=== PATIENT | female | born 1965 ===

== ENCOUNTER 2022-04-03 05:37 | Outpatient (CLI) | payer SELFPAY ==
[~2022-04-03] VITALS: Ht 154.9 cm; Wt 49.0 kg
== END 2022-04-05 11:55 | disposition home or self-care (01) ==
LOC: PREOP 05:37
PROVIDERS: ATTEND Surgery
DX: Z01.818 Encounter for other preprocedural examination (principal); K92.1 Melena

== ENCOUNTER 2022-04-16 08:39 | Day surgery (SDC) | payer OTHER ==
[~2022-04-16] VITALS: Ht 154.9 cm; Wt 49.0 kg
[2022-04-16] MEDS ORDERED: LACTATED RINGERS 1,000 ML IV STA (08:44)
[2022-04-16 09:15] VITALS: BP 124/72
[2022-04-16] MEDS ORDERED: PROPOFOL INJECTION 50 ML IV ONE (11:15)
--- NOTE | 2022-04-16 11:46 | Discharge Inst-Simple/Standard ---
Discharge Inst-Standard Patient Instructions/Follow Up Plan of Care/Instructions/FU: 10 years Sadie unless family hx of colon cancer or personal history of polyps 5 years. Any issues before that be seen at that time. Activity as Tolerated: Yes Discharge Diet: Regular Diet DANIEL OROZCO DO Apr 16, 2022 11:46
[2022-04-16 11:50] VITALS: BP 101/55
[2022-04-16 11:55] VITALS: BP 102/57
[2022-04-16 12:10] VITALS: BP 101/55
--- NOTE | 2022-04-16 14:20 | Anesthesia-General Post-Op ---
MAC Patient Condition Mental Status/LOC: Same as Preop Cardiovascular: Satisfactory Nausea/Vomiting: Absent Respiratory: Satisfactory Pain: Controlled Complications: Absent Post Op Complications Complications None Follow Up Care/Instructions Patient Instructions None needed. Anesthesiology Discharge Order Discharge Order Patient is doing well, no complaints, stable vital signs, no apparent adverse anesthesia problems. No complications reported per nursing. JANETTE TINEO CRNA Apr 16, 2022 14:20
--- NOTE | 2022-04-16 15:31 | OPERATIVE REPORT ---
DATE OF SERVICE: 04/16/2022 PREOPERATIVE DIAGNOSIS: Occult positive stool. POSTOPERATIVE DIAGNOSIS: Normal colon. PROCEDURE: Colonoscopy. SURGEON: Daniel Noel DO ANESTHESIA: Per GLUE SPREADING MACHINE OPERATOR. ESTIMATED BLOOD LOSS: None. COMPLICATIONS: None. INDICATIONS: The patient is a 57-year-old female with occult positive stool. She has been recommended a colonoscopy due to occult positive stools. She understands risks and benefits of procedure and wishes to proceed. Consent was signed in the chart. DESCRIPTION OF PROCEDURE: The patient was taken to the endoscopy suite, placed in left lateral recumbent position. Timeout was performed. Digital rectal exam was performed. No palpable polyps, masses or ulcerations. Scope was inserted in the rectum and advanced all the way to cecum with minimal difficulty. Prep was adequate. Scope was slowly retracted back. No polyps, masses or ulcerations in the cecum, ascending, transverse, descending and sigmoid colon. Once in the rectum, scope was retroflexed. Poor visualization, this was returned to its normal position. It was inserted and retracted multiple times, noting no other pathology. The patient tolerated procedure well without any complications. She was taken to recovery room in stable condition. RECOMMENDATIONS: The patient will need repeat colonoscopy in 10 years unless family history of colon cancer or personal history of polyps, which would then be 5 years. Any issues before that be seen at that time. Job ID: [id number] DocumentID: [id number] Dictated Date: 04/16/2022 11:48:32 Flotation Tank Operator Date: 04/16/2022 15:30:32 Dictated By: DANEIL NOEL DO
== END 2022-04-16 12:20 | disposition home or self-care (01) ==
LOC: ENDO 08:39
PROVIDERS: ATTEND Surgery
DX: R19.5 Other fecal abnormalities (principal); Z28.310 Unvaccinated for COVID-19